=== PATIENT | female | born 1940 | race African-American/Black ===

== ENCOUNTER 2021-02-10 11:45 | Observation (INO) ==
[2021-02-10 12:34] LABS: Albumin 3.6 G/DL (3.4-5.0); Bilirubin,Total 0.4 MG/DL (0.2-1.0); Potassium 3.3 MMOL/L (3.5-5.1); Total Protein 6.7 G/DL (6.4-8.2)
[2021-02-10 12:46] LABS: Basophils % 0.4 % (0.0-0.8); Eosinophils # 0.4 10*3/uL (0.0-0.87); Eosinophils % 5.2 % (0.00-10.9); Hemoglobin 12.7 GM/DL (12.0-16.0); Immature Granulocytes % 0.6 %; Immature Granulocytes Absolute 0.04 #; Lymphocytes # 1.1 10*3/uL (1.4-4.0); Lymphocytes % 15.7 % (21.3-54.2); Mean Corpuscular Volume 86.7 FL (87-102); Mean Platelet Volume 10.7 FL (9.6-12.0); Monocytes % 5.5 % (1.7-12.7); Neutrophils % 72.6 % (38.7-73.9); Platelet Count 273 T/CUMM (130-400); Red Blood Count 4.73 MC/CUMM (3.8-5.5); Red Cell Distribution Width 14.1 % (9.3-17.3); White Blood Count 6.8 T/CUMM (4-12)
[2021-02-10] MEDS ORDERED: GLUCAGON 1 MG VIAL IM PRN (14:25)
[2021-02-10] MEDS ORDERED: DEXTROSE 50% 25 GM/50 ML VIAL IV PRN (14:25)
[2021-02-10] MEDS ORDERED: ONDANSETRON 4 MG/2 ML VIAL IV PRN (14:25)
[2021-02-10] MEDS ORDERED: ACETAMINOPHEN 325 MG TABLET PO PRN (14:25)
[2021-02-10] MEDS: LACTATED RINGERS 1,000 ML IV SCH (17:15)
[2021-02-10] MEDS: INSULIN LISPRO 100 UNIT/ML SUBCUT SCH ×2 (17:18→20:43)
[2021-02-10] MEDS: POTASSIUM CHLORIDE 20 MEQ TABLET PO PRN ×3 (18:35→23:05)
[2021-02-10 20:18] VITALS: BP 178/82
[2021-02-10] MEDS ORDERED: hydrALAZINE 20 MG/1 ML VIAL IV PRN (20:23)
[2021-02-10] MEDS ORDERED: ENOXAPARIN 40 MG/0.4 ML SYRINGE SUBCUT SCH (21:00)
[2021-02-11] MEDS: LACTATED RINGERS 1,000 ML IV SCH (04:40)
[2021-02-11 04:56] LABS: Calcium 8.7 MG/DL (8.5-10.1); Potassium 3.6 MMOL/L (3.5-5.1)
[2021-02-11] MEDS: INSULIN LISPRO 100 UNIT/ML SUBCUT SCH ×2 (07:45→11:48)
[2021-02-11] MEDS ORDERED: MULTIVITAMIN (CENTRUM) TABLET PO SCH (09:00)
[2021-02-11] MEDS ORDERED: ASPIRIN EC 81 MG TABLET PO SCH (09:00)
[2021-02-11 10:18] LABS: Risk Ratio 2.23; VLDL Cholesterol 13.4 MG/DL
== END 2021-02-11 14:50 | disposition home or self-care (01) ==
LOC: EDBD → EDUNIT# → N.EDINP 11:45 → N.ED 11:45 → SUATTDRO 14:25 → N.CC 14:58
PROVIDERS: ADMIT Internal Medicine; ATTEND Internal Medicine